=== PATIENT | female | born 1965 | race Caucasian/White ===

== ENCOUNTER → 2017-01-04 | Outpatient (CLI) | payer OTHER ==
--- NOTE | 2017-01-04 10:11 | XR ---
EXAMINATION TYPE: XR KUB DATE OF EXAM ORDERED: 01/04/2017 10:01 AM HISTORY: Left-sided pain. COMPARISON: Previous study dated 09/18/2015. FINDINGS: There has been a previous cholecystectomy. There is a 1 cm amorphous density overlying the mid polar region of the left kidney. No other renal c alcifications are seen. There are stable phleboliths within the pelvis. The abdominal gas pattern is normal. IMPRESSION: I CANNOT EXCLUDE A LEFT SIDED RENAL CALCULUS.
== END | disposition home or self-care (01) ==
LOC: RADXRMAIN 09:45
PROVIDERS: ATTEND Urology
DX: N20.9 Urinary calculus, unspecified (principal)
CPT/HCPCS: 74000

== ENCOUNTER → 2017-02-11 | Outpatient (CLI) | payer OTHER ==
[2017-02-11 10:43] LABS: Basophils % (A) 0 %; CH 32.5; CHCM 33.2; Eosinophils # (A) 0.2 k/uL (0-0.7); Eosinophils % (A) 3 %; HCT 44.4 % (34.0-46.0); HDW 2.56; HGB 14.6 gm/dL (11.4-16.0); Luc # (Auto) 0.11; Luc % (Auto) 2; Lymphocytes # (A) 0.9 k/uL (1.0-4.8); Lymphocytes % (A) 13 %; MCH 32.3 pg (25.0-35.0); MCHC 32.8 g/dL (31.0-37.0); MCV 98.4 fL (80.0-100.0); Mean Platelet Volume 7.4; Monocytes # (A) 0.4 k/uL (0-1.0); Monocytes % (A) 6 %; Neutrophils # (A) 5.5 k/uL (1.3-7.7); Neutrophils % (A) 76 %; RBC 4.51 m/uL (3.80-5.40); WBC 7.2 k/uL (3.8-10.6); WBC (Perox) 7.45
[2017-02-11 10:52] LABS: Anion Gap 10 mmol/L; Blood Urea Nitrogen 10 mg/dL (7-17); Carbon Dioxide 27 mmol/L (22-30); Chloride 105 mmol/L (98-107); Non-African American GFR(MDRD) >60 (>60 ml/min/1.73 sqM); Potassium 4.4 mmol/L (3.5-5.1); Sodium 142 mmol/L (137-145)
[2017-02-11 12:13] LABS: Appearance,Urine Cloudy (Clear); Bacteria,Urine Few /hpf; Bilirubin,Urine Negative (Negative); Glucose,Urine (UA) Negative (Negative); Ketones,Urine Negative (Negative); Leukocyte Esterase,Urine Large (Negative); Mucus,Urine Rare /hpf; Nitrite,Urine Negative (Negative); PH, Urine 6.5 (5.0-8.0); Particle Count 3393; Protein,Urine Trace (Negative); RBC,Urine 144 /hpf (0-5); Specific Gravity,Urine 1.015 (1.001-1.035); Squamous Epithelial Cell,Urine 1 /hpf (0-4); UA Billing (MACRO vs. MICRO) MICRO; Urobilinogen,Urine <2.0 mg/dL (<2.0); WBC,Urine 97 /hpf (0-5)
== END | disposition home or self-care (01) ==
LOC: LABWHC1 09:29
PROVIDERS: ATTEND Urology
DX: N20.0 Calculus of kidney (principal)
CPT/HCPCS: 36415; 80051; 81001; 82565; 84520; 85025

== ENCOUNTER → 2017-08-09 | Outpatient (CLI) | payer OTHER ==
--- NOTE | 2017-08-09 13:57 | XR ---
EXAMINATION TYPE: XR KUB DATE OF EXAM: 08/09/2017 CLINICAL DATA: 52 year-old female left renal calculus, H COMPARISON: 01/04/2017 FINDINGS: Lung bases are clear. Supine imaging limited for assessment of free intraperitoneal air. Nonobstructive bowel gas pattern. No significant stool burden. Cholecystectomy clips. Calcifications within the pelvis are unchanged ingesting phleboliths. Suggestion of vague calcific de nsity in the left mid abdomen measuring 7 mm. IMPRESSION: Possible 7 mm left renal calculus.
== END ==
LOC: RADXRMAIN 11:25
PROVIDERS: ATTEND Urology
DX: N20.0 Calculus of kidney (principal)
CPT/HCPCS: 74000

== ENCOUNTER → 2017-11-27 | Outpatient (CLI) | payer OTHER ==
--- NOTE | 2017-11-29 11:57 | MM ---
Reason for exam: screening (asymptomatic). Last mammogram was performed 1 year and 1 month ago. History: Patient history of other cancer. Family history of ovarian cancer in aunt. Physical Findings: A clinical breast exam by your physician is recommended on an annual basis and results should be correlated with mammographic findings. MG 3D Screening Mammo W/Cad Bilateral CC and MLO view(s) were taken. Prior study comparison: October 29, 2016, bilateral MG 3d screening mammo w/cad. October 28, 2015, bilateral MG 3d screening mammo w/cad. There are scattered fibroglandular densities. No suspicious abnormality. ASSESSMENT: Negative, BI-RAD 1 RECOMMENDATION: Routine screening mammogram of both breasts in 1 year.
== END | disposition home or self-care (01) ==
LOC: RADMAMWWP 08:44
PROVIDERS: ATTEND Family Medicine
DX: Z12.31 Encounter for screening mammogram for malignant neoplasm of breast (principal)
CPT/HCPCS: 77063; 77067

== ENCOUNTER → 2018-01-11 | Outpatient (CLI) | payer OTHER ==
--- NOTE | 2018-01-11 15:45 | XR ---
EXAMINATION TYPE: XR abdomen 1V DATE OF EXAM: 01/11/2018 CLINICAL DATA: 52-year-old female follow-up history of kidney stones, [facility] COMPARISON: 08/09/2017 FINDINGS: Lung bases are clear. Supine imaging limited for assessment of free intraperitoneal air. Nonobstructive bowel gas pattern. Mild scattered stool. Cholecystectomy clips. Degenerative changes lower lumbar spine. Faint pelvic phleboliths again noted. Previous density in the left mid abdomen is not well seen and may be obscured by bowel content. IMPRESSION: 1. Faint pelvic phleboliths. 2. Previous left mid abdominal density not seen presently and may be obscured by bowel content; no ad ditional suspicious calcification seen.
== END | disposition home or self-care (01) ==
LOC: RADXRMAIN 14:40
PROVIDERS: ATTEND Urology
DX: I87.8 Other specified disorders of veins (principal)
CPT/HCPCS: 74018

== ENCOUNTER → 2018-03-18 | Outpatient (CLI) | payer OTHER ==
[2018-03-18 14:16] LABS: Basophils # (A) 0.1 k/uL (0-0.2); Basophils % (A) 1 %; Eosinophils # (A) 0.2 k/uL (0-0.7); Eosinophils % (A) 3 %; HCT 43.7 % (34.0-46.0); HGB 14.4 gm/dL (11.4-16.0); Lymphocytes # (A) 1.5 k/uL (1.0-4.8); Lymphocytes % (A) 21 %; MCH 30.4 pg (25.0-35.0); MCV 92.1 fL (80.0-100.0); Mean Platelet Volume 8.3; Monocytes # (A) 0.5 k/uL (0-1.0); Monocytes % (A) 7 %; Neutrophils % (A) 67 %; Platelet Count 172 k/uL (150-450); RBC 4.74 m/uL (3.80-5.40); RDW 12.7 % (11.5-15.5); WBC 7.4 k/uL (3.8-10.6)
[2018-03-18 14:25] LABS: ALT 51 U/L (9-52); AST 31 U/L (14-36); Albumin 4.2 g/dL (3.5-5.0); Alkaline Phosphatase 69 U/L (38-126); Anion Gap 11 mmol/L; Blood Urea Nitrogen 13 mg/dL (7-17); Calcium 9.1 mg/dL (8.4-10.2); Carbon Dioxide 30 mmol/L (22-30); Chloride 101 mmol/L (98-107); Glucose 154 mg/dL (74-99); Potassium 4.2 mmol/L (3.5-5.1); Sodium 142 mmol/L (137-145); Total Bilirubin 0.8 mg/dL (0.2-1.3); Total Protein 6.9 g/dL (6.3-8.2)
[2018-03-18 14:42] LABS: T4, Free (Free Thyroxine) 1.09 ng/dL (0.78-2.19)
== END | disposition home or self-care (01) ==
LOC: LABWHC1 12:56
PROVIDERS: ATTEND Psychiatry & Neurology Neurology
DX: E05.00 Thyrotoxicosis with diffuse goiter without thyrotoxic crisis or storm (principal); E08.610 Diabetes mellitus due to underlying condition with diabetic neuropathic arthropathy; R53.83 Other fatigue
CPT/HCPCS: 36415; 80053; 84439; 84443; 84481; 85025

== ENCOUNTER → 2019-06-05 | Outpatient (CLI) | payer OTHER ==
--- NOTE | 2019-06-05 10:57 | XR ---
EXAMINATION TYPE: XR KUB DATE OF EXAM: 06/05/2019 COMPARISON: 01/11/2018 HISTORY: Renal calculi TECHNIQUE: One view abdominal series FINDINGS: Hypertrophic and degenerative change of the spine. Surgical clips in the abdomen. Bowel content obscu res the renal outlines. No definite calcifications. Within the pelvis the calcifications are stable. Osteitis pubis condensans noted. Hypertrophic change of the acetabulum can be associated with femoral acetabular impingement. Bowel gas pattern nonspecific. IMPRESSION: 1. No definite evidence of renal calculi.
== END | disposition home or self-care (01) ==
LOC: RADXRMAIN 10:27
PROVIDERS: ATTEND Nurse Practitioner
DX: N20.0 Calculus of kidney (principal)
CPT/HCPCS: 74018

== ENCOUNTER → 2019-12-04 | Outpatient (CLI) | payer OTHER ==
--- NOTE | 2019-12-04 14:49 | BD ---
EXAMINATION TYPE: Axial Bone Density DATE OF EXAM: 12/04/2019 COMPARISON: 10/28/2015 CLINICAL HISTORY: Z 13.820 Height: 64.2 IN Weight: 213 LBS FRAX RISK QUESTIONS: Family History (Parent hip fracture): YES MOTHER History of Fracture in Adulthood: LT FOOT AGE 54 Secondary Osteoporosis: 3. Menopause before 45: AGE 52 RISK FACTORS HISTORY OF: Family History of Osteoporosis: MOTHER Active: YES Postmenopausal woman: AGE 52 MEDICATIONS: Additional Medications: CALCIUM, VIT D, ALLERGY MED, MUCUS RELIEF MED, MS MEDS, CYMBALTA,GABAPENTIN, EXAM MEASUREMENTS: Bone mineral densitometry was performed using the [employer]. Bone mineral density as measured about the Lumbar spine is: ----- L1-L4(G/cm2): 1.245 T Score Values are as follows: ----- L2: 0.2 ----- L3: 1.2 ----- L4: 1.9 ----- L1-L4: 0.5 Bone mineral density has: Increased 5.3% since study of: 10/28/2015 Bone mineral density about the R hip (g/cm2): 0.778 Bone mineral density about the L hip (g/cm2): 0.853 T Score values are as follows: -----R Neck: -1.9 -----L Neck: -1.3 -----R Total: -1.1 -----L Total: -1.1 Bone mineral density has: Decreased -0.8% since study of: 10/28/2015 IMPRESSION: Osteopenia (T Score between -2.5 and -1). There is slightly increased risk of fracture and the patient may be considered for treatment. Re-Screen 2-5 years. NOTE: T-SCORE=SD OF THE YOUNG ADULT MEAN.
--- NOTE | 2019-12-05 14:10 | MM ---
Reason for exam: screening (asymptomatic). Last mammogram was performed 2 years ago. History: Patient is postmenopausal and history of other cancer. Family history of ovarian cancer in aunt. Physical Findings: A clinical breast exam by your physician is recommended on an annual basis and results should be correlated with mammographic findings. MG 3D Screening Mammo W/Cad Bilateral CC and MLO view(s) were taken. Prior study comparison: November 27, 2017, bilateral MG 3d screening mammo w/cad. October 29, 2016, bilateral MG 3d screening mammo w/cad. There are scattered fibroglandular densities. No suspicious abnormality. No significant changes when compared with prior studies. ASSESSMENT: Negative, BI-RAD 1 RECOMMENDATION: Routine screening mammogram of both breasts in 1 year.
== END | disposition home or self-care (01) ==
LOC: RADMAMWWP 13:50
PROVIDERS: ATTEND Family Medicine
DX: Z12.31 Encounter for screening mammogram for malignant neoplasm of breast (principal); Z13.820 Encounter for screening for osteoporosis; M85.88 Other specified disorders of bone density and structure, other site
CPT/HCPCS: 77063; 77067; 77080

== ENCOUNTER → 2020-05-14 | Outpatient (CLI) | payer OTHER ==
--- NOTE | 2020-05-14 12:03 | XR ---
EXAMINATION TYPE: XR KUB DATE OF EXAM: 05/14/2020 11:53 AM CLINICAL HISTORY: History of kidney stones with gross hematuria TECHNIQUE: Two Upright KUB images of the abdomen are obtained. COMPARISON: Prior abdominal x-ray June 05, 2019. FINDINGS: No definite renal calculi on study though kidney margin somewhat obscured by overlying feca l material. Underlying levoconvex scoliosis centered at L2-L3 level. Lung bases are clear. Overall nonobstructive bowel gas pattern. Cholecystectomy clips. IMPRESSION: As above. Consider CT evaluation.
== END | disposition home or self-care (01) ==
LOC: RADXRMAIN 11:34
PROVIDERS: ATTEND Family Medicine
DX: Z90.49 Acquired absence of other specified parts of digestive tract (principal); R31.9 Hematuria, unspecified
CPT/HCPCS: 74018

== ENCOUNTER → 2020-07-03 | Outpatient (CLI) | payer OTHER ==
--- NOTE | 2020-07-03 13:22 | CT ---
EXAMINATION TYPE: CT abdomen pelvis wo con DATE OF EXAM: 07/03/2020 COMPARISON: Prior CT 09/30/2014 HISTORY: hematuria, history of renal stones CT DLP: 1041.5 mGycm Automated exposure control for dose reduction was used. TECHNIQUE: Helical acquisition of images from the lung bases through the pelvis. FINDINGS: Lack of intravenous contrast could compromise sensitivity. LUNG BASES: No significant abnormality is appreciated. AORTA: No significant abnormality is appreciated. LIVER/GB: No significant interval change is appreciated. PANCREAS: No significant abnormality is seen. SPLEEN: No significant abnormality is seen. ADRENALS: No significant abnormality is seen. KIDNEYS: Distorted and lobular cortices with areas of probable scarring again noted within the kidney s. The large calcifications associated with the lower pole left kidney, larger resolved, some minimal calcification present, 3 small calcifications, largest measuring only approximately 5 to 6 mm, there is no hydronephrosis bilaterally, no ureteral calculus. REPRODUCTIVE ORGANS: Uterus shows a bulky appearance consistent with underlying fibroids URINARY BLADDER: No significant abnormality is seen. BOWEL: Retained fecal debris present throughout the distribution of the colon The appendix is normal FREE AIR: No Free Air is visible. ASCITES: None visible. PELVIC ADENOPATHY: None visualized. RETROPERITONEAL ADENOPATHY: No Retroperitoneal Adenopathy visible. OSSEOUS STRUCTURES: No significant change is seen degenerative disc changes, spinal curvature, facet arthropathy again noted in the visualized spine, sclerosis at the sacroiliac joints could be due to stress changes. IMPRESSION: LEFT-SIDED NEPHROLITHIASIS HAS IMPROVED. NO EVIDENT URETERAL CALCULUS. FIBROID UTERUS. CORRELATE FOR FECAL STASIS. POSTOP CHANGES. ADDITIONAL FINDINGS ABOVE.
== END | disposition home or self-care (01) ==
LOC: RADCTMAIN 10:06
PROVIDERS: ATTEND Family Medicine
DX: N20.0 Calculus of kidney (principal); D25.9 Leiomyoma of uterus, unspecified; R31.9 Hematuria, unspecified
CPT/HCPCS: 74176; 80048; 85025; 87086

== ENCOUNTER → 2021-06-03 | Outpatient (CLI) | payer OTHER ==
--- NOTE | 2021-06-03 16:01 | US ---
DATE OF EXAM: 06/03/2021 COMPARISON: NONE CLINICAL HISTORY: M79.621 Pain in right upper arm. Pt states pain right axilla No abnormality visualized to account for pt's pain in right axilla IMPRESSION: There is no definite sonographic abnormality of the right axilla to account for the patient's pain. C linical follow-up is recommended.
== END | disposition home or self-care (01) ==
LOC: RADUSWWP 14:55
PROVIDERS: ATTEND Family Medicine
DX: M79.621 Pain in right upper arm (principal)

== ENCOUNTER → 2022-05-05 | Outpatient (CLI) | payer OTHER ==
--- NOTE | 2022-05-05 18:32 | XR ---
EXAMINATION TYPE: XR KUB DATE OF EXAM: 05/05/2022 Comparison: 05/14/2020 Clinical History: 57-year-old female N20.0. Left kidney stone, left flank pain. Findings: Cholecystectomy clips. Mjoa-xf-fmbhtffe stool. Subtle a couple calcific densities in the left mid abd omen measuring 7 mm and 5 mm. Pelvic phleboliths. Levoconvex curvature centered along the upper lumba r spine. Nonobstructive bowel gas pattern. Impression: Subtle calcifications left mid abdomen measuring 7 mm and 5 mm, likely renal calculi.
== END | disposition home or self-care (01) ==
LOC: RADXRMAIN 10:22
PROVIDERS: ATTEND Urology
DX: N20.0 Calculus of kidney (principal)
CPT/HCPCS: 74018

== ENCOUNTER 2022-11-21 08:30 | Emergency (ER) | payer MEDICAID ==
[2022-11-21 08:34] VITALS: TEMP 98.4
[2022-11-21] MEDS ORDERED: PANTOPRAZOLE 40 MG/10 ML VIAL IVP STA (08:47)
[2022-11-21] MEDS ORDERED: KETOROLAC 15 MG/ML 1 ML VIAL IVP STA (08:47)
--- NOTE | 2022-11-21 09:03 | ED ---
Abdominal Pain HPI - General Chief Complaint: Abdominal Pain Stated Complaint: Abd pain, fever Time Seen by Provider: 11/21/22 08:34 Source: patient, RN notes reviewed Mode of arrival: ambulatory Limitations: no limitations - History of Present Illness Initial Comments: This is a 57-year-old female who presents to the emergency department for abdominal pain and a fever. States that the symptoms started yesterday. She reports epigastric pain radiating into the back. States that she measured a fever at home, but cannot recall how high it was. Denies any associated nausea or vomiting. She does not have her gallbladder. Describes her stool as "sm oky". Denies any history of similar symptoms in the past. She does not have any associated shortness of breath. Denies any fevers, chills, sore throat, cough, dyspnea, chest pain, palpita tions, nausea, vomiting, diarrhea, back pain, or headaches. MD Complaint: abdominal pain Onset/Timin -: days(s) Location: epigastric Associated Symptoms: fever - Related Data Home Medications Medication Instructions Recorded Confirmed Ascorbic Acid [Vitamin C] 500 mg PO DAILY 09/13/15 09/18/15 Cetirizine HCl [Zyrtec] 10 mg PO DAILY 09/13/15 09/18/15 Cholecalciferol [Vitamin D3] 5,000 unit PO DAILY 09/13/15 09/18/15 Ferrous Sulfate [Feosol] 325 mg PO DAILY 09/13/15 09/18/15 Gabapentin [Neurontin] 300 mg PO HS 09/13/15 09/18/15 Ibuprofen [Motrin] 400 mg PO Q6HR PRN 09/13/15 09/18/15 Omeprazole [PriLOSEC] 20 mg PO AC-BRKFST 09/13/15 09/18/15 Fluticasone Nasal [place] [Flonase 2 spr NASAL HS PRN 09/18/15 09/18/15 Nasal [place]] Sulfamethox-Tmp 800-160Mg [Bactrim 1 tab PO BID 09/18/15 09/18/15 DS 800-160 mg] Previous Rx's Medication Instructions Recorded Ketorolac [Toradol] 10 mg PO Q6HR PRN #12 tab 11/21/22 Allergies Allergy/AdvReac Type Severity Reaction Status Date / Time No Known Allergies Allergy Verified 11/21/22 08:34 Review of Systems ROS Statement: Those systems with pertinent positive or pertinent negative responses have been documented in the HPI. ROS Other: All systems not noted in ROS Statement are negative. Past Medical History Past Medical History: Cancer, Hearing Disorder / Deafness Additional Past Medical History / Comment(s): Malignant melanoma behind left ear removed in 1987. Kidney stones with blood in urine. Multiple brain lesions. Sometimes speech difficulty due to brain lesion. 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 Patient is currently being worked up at the [facility] in [place]. History of Any Multi-Drug Resistant Organisms: None Reported Past Surgical History: No Surgical Hx Reported Additional Past Surgical History / Comment(s): Malignant melanoma removed behind left ear in 1987. Percutaneous nephrolithtomy and multiple lithotripsy procedures. Lumbar puncture 07/13/14 to determine brain lesion. Left sinus surgery 07/06 Past Anesthesia/Blood Transfusion Reactions: No Reported Reaction Past Psychological History: Anxiety Smoking Status: Never smoker Past Alcohol Use History: Occasional Past Drug Use History: None Reported - Past Family History Father Family Medical History: Cancer Additional Family Medical History / Comment(s): Liver cancer. Mother Family Medical History: No Reported History Additional Family Medical History / Comment(s): systemic scleroderma Brother(s) Family Medical History: Cancer Additional Family Medical History / Comment(s): Brain Cancer and clot in brain. General Exam Limitations: no limitations General appearance: alert, in no apparent distress Head exam: Present: atraumatic, normocephalic, normal inspection Respiratory exam: Present: normal lung sounds bilaterally. Absent: respiratory distress, wheezes, rales, rhonchi, stridor Cardiovascular Exam: Present: regular rate, normal rhythm, normal heart sounds. Absent: systolic murmur, diastolic murmur, rubs, gallop, clicks GI/Abdominal exam: Present: soft, tenderness (epigastric), normal bowel sounds. Absent: distended Neurological exam: Present: alert, oriented X3, CN II-XII intact Psychiatric exam: Present: normal affect, normal mood Skin exam: Present: warm, dry, intact, normal color. Absent: rash Course Vital Signs 11/21/22 11/21/22 11/21/22 08:31 09:44 11:56 Temperature 98.4 F 98.4 F Pulse Rate 106 H 106 H 87 Respiratory 20 20 18 Rate Blood Pressure 164/96 164/96 141/83 O2 Sat by Pulse 99 99 95 Oximetry Medical Decision Making - Medical Decision Making This is a 57-year-old female who presents to the emergency department for abdominal pain. Was pt. sent in by a medical professional or institution? @ -No Did you speak to anyone other than the patient for history? @ -No Did you review nursing and triage notes? @ -Agree, accurate with regards to the patient's symptoms. Were old charts reviewed? @ -No Differential Diagnosis? @ -Differential Abdominal Pain Women: Appendicitis, Cholecystitis, diverticulosis, ischemic bowel, pancreatitis, h epatitis, UTI, gastroenteritis, AAA, incarcerated hernia, bowel obstruction, constipation, inflammatory bowel, hepatitis, peptic ulcer disease, splenic infarction, perforated viscus, vulvitis, ovarian torsion, PID, kidney stone, placenta abruption, this is not meant to be an all-inclusive list EKG interpreted by me (3pts min.)? @ -Sinus rhythm. Ventricular rate 95 bpm, NH interval 147 ms, QRS duration 93 ms, QTC [address] interpreted by me (1pt min.)? @ -Computed tomography scan of the abdomen and pelvis reveals no free air, bowel wall thickening, or signs of epigastric abnormalities such as a hiatal hernia. The radiologist does make note of inflammatory changes in the right lower quadrant, however the patient has no tenderness there. What testing was considered but not performed? (CT, X-rays, U/S, labs)? Why? @ -None What meds were considered but not given? Why? @ -[none] Did you discuss the management of the patient with other professionals? @ -No Did you reconcile home meds? @ -No Was critical care preformed (if so, how long)? @ -No Were there social determinants of health that impacted care today? How? (Homelessness, low income, unemployed, alcoholism, drug addiction, transportation, low edu. Level, literacy, decrease access to med. care, penitentiary, rehab)? @ -No Was there de-escalation of care discussed even if they declined? (Discuss DNR or withdrawal of care, Hospice)? @ -No What co-morbidities impacted this encounter? (DM, HTN, Smoking, COPD, CAD, Cancer, CVA, Hep., AIDS, mental health diagnosis, sleep apnea, morbid obesity)? @ -Obesity Was patient admitted / discharged? @ -Discharged. Lab work obtained and found to be nonactionable. Computed ajit ography scan of the abdomen and pelvis obtained with my interpretation listed above. Patient was given Toradol and Protonix, which she states essentially resolved her symptoms. She declined a GI cocktail. Prescription for Toradol provided in the event the pain returns. Advised she avoid other ov yr-cmk-qhxafyz anti-inflammatories such as ibuprofen with this. Also recommended she start an tnja-vrj-nxfanbj PPI or H2 lida. Recommended she discuss a GI referral with her primary care provider in the event she needs an EGD for further evaluation of her symptoms. Drug Therapy requiring intensive monitoring for toxicity (Heparin, Nitro, Insulin, Cardizem)? @ -None Were any procedures done? @ -None Diagnosis/symptom? @ -Epigastric pain Acute, or Chronic, or Acute on Chronic? @ -Acute Uncomplicated (without systemic symptoms) or Complicated (systemic symptoms)? @ -Uncomplicated Side effects of treatment? @ -Adverse reaction to the toradol or PPI/H2 lida if she chooses to take one of them. Exacerbation, Progression, or Severe Exacerbation] @ -Not applicable Poses a threat to life or bodily function? @ -May impact bodily function depending on the severity of the pain. This case was discussed in detail with the attending ED physician. Presentation, findings, and treatment plan discussed in detail as well. - Lab Data Result diagrams: 11/21/22 09:44 11/21/22 09:44 Lab Results 11/21/22 11/21/22 11/21/22 Range/Units 09:44 09:44 09:44 WBC 7.3 (3.8-10.6) k/uL RBC 4.21 (3.80-5.40) m/uL Hgb 13.7 (11.4-16.0) gm/dL Hct 39.5 (34.0-46.0) % MCV 93.8 (80.0-100.0) fL MCH 32.6 (25.0-35.0) pg MCHC 34.8 (31.0-37.0) g/dL RDW 12.5 (11.5-15.5) % Plt Count 130 L (150-450) k/uL MPV 8.3 Neutrophils % 83 % Lymphocytes % 7 % Monocytes % 7 % Eosinophils % 1 % Basophils % 1 % Neutrophils # 6.0 (1.3-7.7) k/uL Lymphocytes # 0.5 L (1.0-4.8) k/uL Monocytes # 0.5 (0-1.0) k/uL Eosinophils # 0.0 (0-0.7) k/uL Basophils # 0.1 (0-0.2) k/uL Sodium 136 L (137-145) mmol/L Potassium 3.9 (3.5-5.1) mmol/L Chloride 106 (98-107) mmol/L Carbon Dioxide 27 (22-30) mmol/L Anion Gap 3 mmol/L BUN 14 (7-17) mg/dL Creatinine 0.80 (0.52-1.04) mg/dL Est GFR (CKD-EPI)AfAm >90 (>60 ml/min/1.73 sqM) Est GFR (CKD-EPI)NonAf 82 (>60 ml/min/1.73 sqM) Glucose 103 H (74-99) mg/dL Plasma Lactic Acid Evert (0.7-2.0) mmol/L Calcium 8.2 L (8.4-10.2) mg/dL Total Bilirubin 0.8 (0.2-1.3) mg/dL AST 31 (14-36) U/L ALT 34 (4-34) U/L Alkaline Phosphatase 66 (38-126) U/L Troponin I (0.000-0.034) ng/mL Total Protein 6.3 (6.3-8.2) g/dL Albumin 3.6 (3.5-5.0) g/dL Amylase 38 (30-110) U/L Lipase 50 (23-300) U/L Urine Color Light Yellow Urine Appearance Clear (Clear) Urine pH 7.0 (5.0-8.0) Ur Specific [place] 1.010 (1.001-1.035) Urine Protein Trace H (Negative) Urine Glucose (UA) Negative (Negative) Urine Ketones Negative (Negative) Urine Blood Negative (Negative) Urine Nitrite Negative (Negative) Urine Bilirubin Negative (Negative) Urine Urobilinogen <2.0 (<2.0) mg/dL Ur Leukocyte Esterase Negative (Negative) 11/21/22 11/21/22 Range/Units 09:44 09:44 WBC (3.8-10.6) k/uL RBC (3.80-5.40) m/uL Hgb (11.4-16.0) gm/dL Hct (34.0-46.0) % MCV (80.0-100.0) fL MCH (25.0-35.0) pg MCHC (31.0-37.0) g/dL RDW (11.5-15.5) % Plt Count (150-450) k/uL MPV Neutrophils % % Lymphocytes % % Monocytes % % Eosinophils % % Basophils % % Neutrophils # (1.3-7.7) k/uL Lymphocytes # (1.0-4.8) k/uL Monocytes # (0-1.0) k/uL Eosinophils # (0-0.7) k/uL Basophils # (0-0.2) k/uL Sodium (137-145) mmol/L Potassium (3.5-5.1) mmol/L Chloride (98-107) mmol/L Carbon Dioxide (22-30) mmol/L Anion Gap mmol/L BUN (7-17) mg/dL Creatinine (0.52-1.04) mg/dL Est GFR (CKD-EPI)AfAm (>60 ml/min/1.73 sqM) Est GFR (CKD-EPI)NonAf (>60 ml/min/1.73 sqM) Glucose (74-99) mg/dL Plasma Lactic Acid Evert 0.8 (0.7-2.0) mmol/L Calcium (8.4-10.2) mg/dL Total Bilirubin (0.2-1.3) mg/dL AST (14-36) U/L ALT (4-34) U/L Alkaline Phosphatase (38-126) U/L Troponin I <0.012 (0.000-0.034) ng/mL Total Protein (6.3-8.2) g/dL Albumin (3.5-5.0) g/dL Amylase (30-110) U/L Lipase (23-300) U/L Urine Color Urine Appearance (Clear) Urine pH (5.0-8.0) Ur Specific [place] (1.001-1.035) Urine Protein (Negative) Urine Glucose (UA) (Negative) Urine Ketones (Negative) Urine Blood (Negative) Urine Nitrite (Negative) Urine Bilirubin (Negative) Urine Urobilinogen (<2.0) mg/dL Ur Leukocyte Esterase (Negative) - Radiology Data Radiology results: report reviewed, image reviewed Disposition Clinical Impression: Epigastric pain Disposition: HOME SELF-CARE Instructions (If sedation given, give patient instructions): Epigastric Pain (ED) Additional Instructions: Return to the emergency department with any new, worsening, or concerning symptoms. You can take the Toradol up to every 6 hours as needed for pain. If you choose to take this, do not take other fcnz-evg-nczfeio anti-inflammatories such as ibuprofen. Consider starting either ddnp-frv-kpioosk Protonix or famotidine to treat your symptoms as well. Follow up with your primary care provider to discuss if any additional testing, such as an EGD to evaluate your stomach and esophagus is recommended. Prescriptions: Ketorolac [Toradol] 10 mg PO Q6HR PRN #12 tab PRN Reason: Pain Is patient prescribed a controlled substance at d/c from ED?: No Referrals: Maya Viera DO [Primary Care Provider] - 1-2 days
[2022-11-21 09:58] LABS: Appearance,Urine Clear (Clear); Bilirubin,Urine Negative (Negative); Blood,Urine Negative (Negative); Color,Urine Light Yellow; Glucose,Urine (UA) Negative (Negative); Ketones,Urine Negative (Negative); Leukocyte Esterase,Urine Negative (Negative); Nitrite,Urine Negative (Negative); Protein,Urine Trace (Negative); Urobilinogen,Urine <2.0 mg/dL (<2.0)
[2022-11-21 10:03] LABS: Basophils # (A) 0.1 k/uL (0-0.2); Basophils % (A) 1 %; Eosinophils % (A) 1 %; HCT 39.5 % (34.0-46.0); HGB 13.7 gm/dL (11.4-16.0); Lymphocytes # (A) 0.5 k/uL (1.0-4.8); Lymphocytes % (A) 7 %; MCH 32.6 pg (25.0-35.0); MCHC 34.8 g/dL (31.0-37.0); MCV 93.8 fL (80.0-100.0); Mean Platelet Volume 8.3; Monocytes # (A) 0.5 k/uL (0-1.0); Monocytes % (A) 7 %; Neutrophils % (A) 83 %; Platelet Count 130 k/uL (150-450); RBC 4.21 m/uL (3.80-5.40); RDW 12.5 % (11.5-15.5); WBC 7.3 k/uL (3.8-10.6)
[2022-11-21 10:14] LABS: ALT 34 U/L (4-34); AST 31 U/L (14-36); African American GFR (CKD) >90 (>60 ml/min/1.73 sqM); Albumin 3.6 g/dL (3.5-5.0); Alkaline Phosphatase 66 U/L (38-126); Amylase 38 U/L (30-110); Anion Gap 3 mmol/L; Blood Urea Nitrogen 14 mg/dL (7-17); Calcium 8.2 mg/dL (8.4-10.2); Carbon Dioxide 27 mmol/L (22-30); Chloride 106 mmol/L (98-107); Glucose 103 mg/dL (74-99); Lipase 50 U/L (23-300); Non-African American GFR(CKD) 82 (>60 ml/min/1.73 sqM); Potassium 3.9 mmol/L (3.5-5.1); Sodium 136 mmol/L (137-145); Total Bilirubin 0.8 mg/dL (0.2-1.3); Total Protein 6.3 g/dL (6.3-8.2)
--- NOTE | 2022-11-21 10:16 | CT ---
EXAMINATION TYPE: CT abdomen pelvis w con CT DLP: 1911 mGycm, Automated exposure control for dose reduction was used. DATE OF EXAM: 11/21/2022 10:00 AM COMPARISON: 07/03/2020 CT. CLINICAL INDICATION:Female, 57 years old with history of Epigastric pain; RLQ tenderness TECHNIQUE: Axial CT of the abdomen and pelvis. Sagittal and coronal reformats were created on a [employer] workstation. Contrast used:100 mL of Isovue 300 with IV Contrast, Oral contrast used: without Oral Contrast FINDINGS: LOWER CHEST: Unremarkable ABDOMEN LIVER: Scattered hepatic cysts. Diffuse low-attenuation liver parenchyma. GALLBLADDER AND BILE DUCTS: The gallbladder is surgically absent. PANCREAS: Unremarkable. SPLEEN: Unremarkable. ADRENAL GLANDS: Unremarkable. KIDNEYS AND URETERS: Nodular contour to the kidneys with focal areas of cortical thinning. Persistent nonobstructive left upper pole renal cyst limited calculus. No evidence hydronephrosis. PELVIS BLADDER: Unremarkable REPRODUCTIVE: Left fundal exophytic fibroid measuring up to 4.3 cm. ABDOMEN & PELVIS STOMACH AND BOWEL: No evidence of bowel obstruction. Appendix is normal. PERITONEUM: No evidence of pneumoperitoneum or free fluid. Minimal alec mesentery with prominent non enlarged lymph nodes. VASCULATURE: No evidence of aortic aneurysm. MUSCULOSKELETAL: No acute osseous abnormalities LYMPH NODES: No gross evidence for lymphadenopathy. SOFT TISSUE/ABDOMINAL WALL: Unremarkable IMPRESSION: 1. Minimal alec mesentery in the right lower quadrant with nonenlarged lymph nodes which are promin ent, findings could represent enteritis changes versus sclerosing panniculitis. No bowel wall thicken ing. No additional evidence for acute right lower quadrant process. Normal appendix 2. Hepatic steatosis. 3. Non obstructing left renal calculus. 4. Cortical thinning the kidneys bilaterally likely from remote injuries. 5. Uterine fibroid.
[2022-11-21] MEDS ORDERED: MAG HYDROX/AL HYDROX/SIMETH 30 ML, HYOSCYAMINE ELIXIR 10 ML, LIDOCAINE VISCOUS 2% 10 ML PO STA ×3 (10:21)
[2022-11-21 11:59] VITALS: BP 141/83; PULSE 87; RESP 18
== END 2022-11-21 11:58 | disposition home or self-care (01) ==
LOC: EC 08:30
DX: R10.13 Epigastric pain (principal); F41.9 Anxiety disorder, unspecified
CPT/HCPCS: 36415; 74177; 80053; 81003; 82150; 83605; 83690; 84484; 85025; 93005; 96374; 96375; 99284